=== PATIENT | male | born 1975 | race Caucasian/White ===

== ENCOUNTER 2019-04-17 00:05 | Emergency (ER) | payer BC ==
[~2019-04-17] VITALS: Ht 193 cm; Wt 106.6 kg
[2019-04-17] MEDS ORDERED: levETIRAcetam 500 MG TABLET PO SCH (00:15)
--- NOTE | 2019-04-17 00:18 | PHYS DOC ---
Adult General Chief Complaint Chief Complaint: SEIZURE HPI HPI 43-year-old male presents to the emergency Department complaints of seizure. Patient's underlying history of seizure disorder, states he's been on Tegretol before however has not been taking medications and has not had a seizure since last year. Seizure lasted for approximately 5 min, patient was postictal afterwards subsequent return to baseline at this time. Discussed use of antiepileptic medications in the past. He states he's been seen by neurology at . She denies any headache, visual change, fever, nausea, vomiting, abdominal pain, chest pain, shortness of breath. Review of Systems Review of Systems Constitutional: Denies fever or chills [] Eyes: Denies change in visual acuity, redness, or eye pain [] Respiratory: Denies cough or shortness of breath [] Cardiovascular: No additional information not addressed in HPI [] GI: Denies abdominal pain, nausea, vomiting, bloody stools or diarrhea [] Musculoskeletal: Denies back pain or joint pain [] Neurologic: Denies headache, focal weakness or sensory changes [] All other systems were reviewed and found to be within normal limits, except as documented in this note. Current Medications Current Medications Current Medications Medications (Trade) Dose Ordered Sig/Olena Start Time Stop Time Status Last Admin Dose Admin Levetiracetam (Keppra) 1,000 mg 1X 04/17/19 00:15 04/17/19 00:26 1,000 MG Allergies Allergies Allergies Coded Allergies Type Severity Reaction Last Updated Verified No Known Drug Allergies 04/17/19 No Physical Exam Physical Exam Constitutional: Well developed, well nourished, no acute distress, non-toxic appearance. [] HENT: Normocephalic, atraumatic, bilateral external ears normal, oropharynx moist, no oral exudates, nose normal. tongue with bite right lateral side ho wever no bleeding [] Eyes: PERRLA, EOMI, conjunctiva normal, no discharge. [] Cardiovascular:Heart rate regular rhythm, no murmur [] Lungs & Thorax: Bilateral breath sounds clear to auscultation [] Abdomen: Bowel sounds normal, soft, no tenderness, no masses, no pulsatile masses. [] Skin: Warm, dry, no erythema, no rash. [] Extremities: No tenderness, no edema. [] Neurologic: Alert and oriented X 3, no focal deficits noted. [] Psychologic: Affect normal, judgement normal, mood normal. [] Current Patient Data Vital Signs Vital Signs Date Time Temp Pulse Resp B/P (MAP) Pulse Ox O2 Delivery O2 Flow Rate FiO2 04/17/19 00:06 98.4 102 16 139/84 (102) 94 Room Air 98.4 EKG EKG [] Radiology/Procedures Radiology/Procedures [] Course & Med Decision Making Course & Med Decision Making Pertinent Labs and Imaging studies reviewed. (See chart for details) []43-year-old male presents to the emergency Department complaints of seizure. Patient's underlying history of seizure disorder, states he's been on Tegretol before however has not been taking medications and has not had a seizure since last year. Seizure lasted for approximately 5 min, patient was postictal afterwards subsequent return to baseline at this time. Discussed use of antiepileptic medications in the past. He states he's been seen by neurology at . She denies any headache, visual change, fever, nausea, vomiting, abdominal pain, chest pain, shortness of breath. Discussed observation in the ER No plans for imaging given seizure history Keppra 1000mg po x 1 No further seizure activity - rx provided for Keppra 500mg BID upon discharge Recommend follow up with Neurology at [facility] Disclaimer Dragon Disclaimer This electronic medical record was generated, in whole or in part, using a voice recognition dictation system. Departure Departure Impression: Primary Impression: Seizure Disposition: 01 HOME, SELF-CARE Condition: GUARDED Patient Instructions: Seizure Disorder, Child, Generalized Tonic-Clonic Additional Instructions: Recommend follow up with PCP 3 - 5 days Return to the ER with worsening symptoms, intractable pain, fever, altered mental status Tylenol/Motrin as needed for pain Take keppra as directed BID Scripts Levetiracetam (KEPPRA) 500 Mg Tablet 1 TAB PO BID for 30 Days, #60 TAB 1 Refill Prov: STEVEN MORAN MD 04/17/19 STEVEN MORAN MD Apr 17, 2019 00:18
[2019-04-17] MEDS ORDERED: LEVE500T56 PO (00:43)
[2019-04-17 01:00] VITALS: BP 133/81
== END 2019-04-17 01:04 | disposition home or self-care (01) ==
LOC: ER 00:05
DX: G40.909 Epilepsy, unspecified, not intractable, without status epilepticus (principal)
CPT/HCPCS: 99283